=== PATIENT | female | born 1955 | race Caucasian/White ===

== ENCOUNTER 2018-05-13 16:08 | Outpatient (REF) | payer BC, SELFPAY ==
--- NOTE | 2018-05-13 15:45 | PAPFT_PTH ---
PATIENT: Sydney Chang LOC: [facility] U#:[id number] AGE/SX: 63/F ROOM: RE05/13/[address]: Lorena Paez MD : 1955 BED: DIS: 05/13/2018 SPEC #: [id number] RECD: 05/13/18 17:54 STATUS: HARMAN REQ #: [id number] SNEHAL: 05/13/18 15:[address]: Lorena Paez DEPT: [facility] Cytology RECD BY: Lidya Arriaga Tissues: 1 - CX/ENDOCX FOR PAP SMEARS Procedures: PAP THIN PREP/UVM Screening HPV DNA PROBE Comments: [id number]
== END 2018-05-13 16:28 ==
LOC: LBN 16:08
PROVIDERS: PCP Internal Medicine; Visit Provider Internal Medicine
DX: Z12.4 Encounter for screening for malignant neoplasm of cervix (principal); Z11.51 Encounter for screening for human papillomavirus (HPV)
CPT/HCPCS: 88142; 87624

== ENCOUNTER 2018-06-05 00:53 | Outpatient (CLI) | payer BC, SELFPAY ==
--- NOTE | 2018-06-05 16:10 | DI.MAMMO_ITS ---
SYMPTOM/DIAGNOSIS: SCREENING, Z12.31 MAMMOGRAMS: Mammograms were interpreted according to the usual protocol including computer analysis with CAD system, tomosynthesis and C view imaging. Comparison with prior examinations. Breast density A. No suspicious masses or microcalcifications are seen. There is no definite evidence of malignancy. IMPRESSION: Negative mammogram. Routine screening is recommended. Category I. MQSA ASSESSMENT OF FINDINGS: Negative. Category 1. Patient will receive a letter notifying them of these results. BI-RAD category A. The breasts are almost entirely fatty.
== END 2018-06-05 01:13 ==
PROVIDERS: PCP Internal Medicine; Visit Provider Internal Medicine
DX: Z12.31 Encounter for screening mammogram for malignant neoplasm of breast (principal)
CPT/HCPCS: 77063; 77067

== ENCOUNTER 2020-07-08 03:30 | Outpatient (CLI) | payer MEDICARE, BC, SELFPAY ==
--- NOTE | 2020-07-08 07:53 | DI.MAMMO_ITS ---
EXAM: MAMMO SCREENING CLINICAL HISTORY: screening,z12.39 TECHNIQUE: Mammograms were interpreted according to the usual protocol including computer analysis w [employer] CAD system, tomosynthesis and C-view imaging. COMPARISON: 2011 through 2018 FINDINGS: The breasts are composed of mainly fatty density , Breast Density category A. No suspicious masses or suspicious microcalcifications are seen. No skin thickening or abnormal axillary lymph nodes are seen. There has been no significant change from prior exams. IMPRESSION: BI-RADS Category 1, Negative mammogram Yearly screening mammography is recommended. Breast Density - Category A, fatty density. A negative radiographic report should not delay biopsy if a dominant or clinically suspicious mass is present. Up to ten percent of cancers are not identified on mammography. A negative report may reinforce clinical impression. Adenosis and dense breasts may obscure an underlying neoplasm. False positive reports average 6 to 10%. Patient will receive a letter notifying them of these results.
== END 2020-07-08 03:50 ==
PROVIDERS: PCP Internal Medicine; Visit Provider Internal Medicine
DX: Z12.31 Encounter for screening mammogram for malignant neoplasm of breast (principal)
CPT/HCPCS: 77063; 77067

== ENCOUNTER → 2020-09-29 13:01 | Outpatient (BNVA) | payer MEDICARE, BC, SELFPAY | PROVIDERS: PCP Internal Medicine; Referring Provider Internal Medicine | DX: S92.354A Nondisplaced fracture of fifth metatarsal bone, right foot, initial encounter for closed fracture (principal); X50.9XXA Other and unspecified overexertion or strenuous movements or postures, initial encounter | CPT/HCPCS: 99203 ==

== ENCOUNTER 2020-09-29 13:56 | Outpatient (CLI) | payer MEDICARE, BC, SELFPAY ==
--- NOTE | 2020-09-29 09:45 | DI.RAD_ITS ---
Exam(s) XR ANKLE RT COMPLETE EXAM: XR ANKLE RT COMPLETE CLINICAL HISTORY: R foot/ distial tibial pain s/p ankle twisting ?fx M79.671 PAIN RT FOOT. TECHNIQUE: 2D digital imaging was performed. COMPARISON: No exams were available for comparison FINDINGS: There are no malleolar fractures and talar dome appears unremarkable. No widening of the mortise. T iny inferior calcaneal spur. The main finding here is a nondisplaced fracture of the base of the 5th metatarsal. There is no osse ous tarsal coalition. IMPRESSION: There is nondisplaced fracture at the base of the 5th metatarsal. DATA REPOSITORY: RADIATION DOSE DELIVERED:
--- NOTE | 2020-09-29 09:45 | DI.RAD_ITS ---
Exam(s) XR FOOT RT COMPLETE EXAM: XR FOOT RT COMPLETE CLINICAL HISTORY: R foot/ distial tibial pain s/p ankle twisting ?fx M79.671 PAIN RT FOOT. TECHNIQUE: 2D digital imaging was performed. COMPARISON: There is a nondisplaced oblique fracture of the base of the 5th metatarsal. No other fr actures evident. No diastasis of the Lisfranc joint. Bone density is normal. No osseous lesions. No radiopaque foreign body. FINDINGS: Nondisplaced fracture at the base of the 5th metatarsal. IMPRESSION: DATA REPOSITORY: RADIATION DOSE DELIVERED:
--- NOTE | 2020-09-29 09:45 | DI.RAD_ITS ---
Exam(s) XR TIB/FIB RT EXAM: XR TIB/FIB RT CLINICAL HISTORY: R foot/ distial tibial pain s/p ankle twisting ?fx M79.671 PAIN RT FOOT. TECHNIQUE: 2D digital imaging was performed. COMPARISON: CR XR ANKLE RT COMPLETE from 09/29/2020 FINDINGS: There is no evidence of fracture of the tibia and fibula. Mild degenerative changes noted in the med ial compartment of the knee. No osseous lesions. Please note that other images performed today reveal a nondisplaced fracture of the base of the 5th m etatarsal. IMPRESSION: DATA REPOSITORY: RADIATION DOSE DELIVERED:
== END 2020-09-29 14:16 ==
PROVIDERS: PCP Internal Medicine; Visit Provider Nurse Practitioner Family
DX: S92.354A Nondisplaced fracture of fifth metatarsal bone, right foot, initial encounter for closed fracture (principal); M79.89 Other specified soft tissue disorders; M89.8X6 Other specified disorders of bone, lower leg; X50.1XXA Overexertion from prolonged static or awkward postures, initial encounter
CPT/HCPCS: 99203; 73590; 73610; 73630

== ENCOUNTER 2020-11-10 12:03 | Outpatient (CLI) | payer MEDICARE, BC, SELFPAY ==
--- NOTE | 2020-11-10 11:45 | DI.RAD_ITS ---
Exam(s) XR FOOT RT COMPLETE EXAM: XR FOOT RT COMPLETE CLINICAL HISTORY: RIGHT FIFTH METATARSAL FRACTURE. TECHNIQUE: 2D digital imaging was performed. COMPARISON: CR XR FOOT RT COMPLETE from 09/29/2020 FINDINGS: There is now significant displacement at the previously described fracture site at the base of the 5t h metatarsal. There has been significant widening at the fracture site since the prior study. No ne w additional fractures evident. IMPRESSION: Further displacement at the fracture site of the base of the 5th metatarsal is evident. DATA REPOSITORY: RADIATION DOSE DELIVERED:
== END 2020-11-10 12:04 | disposition home or self-care (01) ==
LOC: DIORS 12:03
PROVIDERS: PCP Internal Medicine; Referring Provider Internal Medicine; Visit Provider Student in an Organized Health Care Education/Training Program
DX: S92.354D Nondisplaced fracture of fifth metatarsal bone, right foot, subsequent encounter for fracture with routine healing; X58.XXXD Exposure to other specified factors, subsequent encounter
CPT/HCPCS: 99212; 73630

== ENCOUNTER → 2020-12-22 11:33 | Outpatient (BNVA) | payer MEDICARE, BC, SELFPAY | PROVIDERS: PCP Internal Medicine; Referring Provider Internal Medicine; Visit Provider Student in an Organized Health Care Education/Training Program | DX: S92.354D Nondisplaced fracture of fifth metatarsal bone, right foot, subsequent encounter for fracture with routine healing (principal); X58.XXXD Exposure to other specified factors, subsequent encounter | CPT/HCPCS: 99212 ==

== ENCOUNTER 2021-08-31 03:54 | Outpatient (CLI) | payer MEDICARE, SELFPAY ==
[2021-08-31 10:57] LABS: Anion Gap 5.3 mmol/L (3-11); BUN 13 mg/dL (7-18); CO2 28.7 mmol/L (21.0-32.0); CREATININE 0.9 mg/dL (0.55-1.02); Calcium 8.5 mg/dL (8.5-10.1); Calculated LDL 97 mg/dL (<100); Chloride 108 mmol/L (98-107); Cholesterol 178 mg/dL (<200); Glucose 99 mg/dL (74-106); HDL Cholesterol 71 mg/dL (40-60); Potassium 4.2 mmol/L (3.5-5.1); Sodium 142 mmol/L (136-145); Triglyceride 54 mg/dL (<150)
== END 2021-08-31 03:55 | disposition home or self-care (01) ==
LOC: LBO 03:54
PROVIDERS: PCP Student in an Organized Health Care Education/Training Program; Visit Provider Student in an Organized Health Care Education/Training Program
DX: R10.12 Left upper quadrant pain (principal); K21.9 Gastro-esophageal reflux disease without esophagitis; E86.0 Dehydration; Z79.899 Other long term (current) drug therapy
CPT/HCPCS: 36415; 80048; 80061

== ENCOUNTER 2022-03-21 14:19 | Outpatient (REF) | payer MEDICARE, SELFPAY ==
[2022-03-23 11:55] LABS: COVID-19 RT-PCR UVMMC Result Negative (Negative)
== END 2022-03-21 14:20 | disposition home or self-care (01) ==
LOC: LBN 14:19
PROVIDERS: PCP Student in an Organized Health Care Education/Training Program; Visit Provider Nurse Practitioner Family
DX: Z20.822 Contact with and (suspected) exposure to COVID-19 (principal)
CPT/HCPCS: U0003

== ENCOUNTER → 2022-08-21 12:57 | Outpatient (BNVA) | payer MEDICARE, SELFPAY | PROVIDERS: PCP Student in an Organized Health Care Education/Training Program; Referring Provider Student in an Organized Health Care Education/Training Program; Visit Provider Surgery | DX: R10.812 Left upper quadrant abdominal tenderness (principal); K21.9 Gastro-esophageal reflux disease without esophagitis | CPT/HCPCS: 99202; 99213 ==

== ENCOUNTER 2022-08-30 10:26 | Outpatient (REF) | payer MEDICARE, SELFPAY ==
[2022-09-03 16:24] LABS: Calprotectin <50.0 mcg/g; Helicobacter pylori Ag, Feces Negative (Negative)
== END 2022-08-30 10:27 | disposition home or self-care (01) ==
LOC: LBN 10:26
PROVIDERS: PCP Student in an Organized Health Care Education/Training Program; Visit Provider Student in an Organized Health Care Education/Training Program
DX: R10.9 Unspecified abdominal pain (principal); Z79.899 Other long term (current) drug therapy; Z91.89 Other specified personal risk factors, not elsewhere classified; K21.9 Gastro-esophageal reflux disease without esophagitis
CPT/HCPCS: 87338; 83630; 83993

== ENCOUNTER 2022-08-31 01:02 | Outpatient (CLI) | payer MEDICARE, SELFPAY ==
--- NOTE | 2022-08-31 08:03 | DI.US_ITS ---
Exam(s) US ABDOMEN EXAM: US ABDOMEN CLINICAL HISTORY: evaluate for fatty liver; LUQ for hernia,hepatic lesion,luq abd tenderness, TECHNIQUE: Ultrasound of complete upper abdomen performed using standard protocol. COMPARISON: US PELVIS TRANSVAG from 02/21/2016 FINDINGS: There is no ascites evident. LIVER: Liver appears slightly prominent in size. There is no steatosis. There is a septated cyst in the left hepatic lobe. This measures 1.7 x 1.2 x 1.2 cm. GALLBLADDER/BILIARY: There appears be a small 3 millimeter polyp in the gallbladder. No shadowing mo bile gallstones. No gallbladder wall edema nor pericholecystic fluid. The common hepatic duct isnot dilated, measuring 4mm at the level of bryant hepatis. PANCREAS: There is no evidence of pancreatic mass nor dilatation of the pancreatic duct. SPLEEN: The spleen is not enlarged and there are no intrasplenic lesions evident. KIDNEYS:Kidneys exhibit normal size with no evidence of solid mass, calculus, nor hydronephrosis. No cortical cysts evident. ABDOMINAL AORTA: There is no evidence of abdominal aortic aneurysm. IVC: Normal diameter where visualized. IMPRESSION: 1. No evidence of cholelithiasis nor dilatation of the biliary tree. 2. There is a benign-appearing septated cyst in the left hepatic lobe which measures 17 x 12 x 12 mm . 3. There is a small polyp in the gallbladder measuring approximately 3 mm. DATA REPOSITORY:
== END 2022-08-31 01:22 ==
LOC: DI 01:02
PROVIDERS: PCP Student in an Organized Health Care Education/Training Program; Visit Provider Student in an Organized Health Care Education/Training Program
DX: R16.0 Hepatomegaly, not elsewhere classified (principal); K82.4 Cholesterolosis of gallbladder; D13.4 Benign neoplasm of liver
CPT/HCPCS: 76700

== ENCOUNTER 2022-09-05 08:00 | Day surgery (SDC) | payer MEDICARE, SELFPAY ==
[2022-09-05 08:12] VITALS: BP 117/74; PULSE 63; RESP 16; TEMP 36.2; O2SAT 100
--- NOTE | 2022-09-05 08:18 | W.ANESPRE ---
General Info Date of Service Date Performed: 09/05/22 Height: 5 ft 3 in Weight: 92.306 kg Body Mass Index (BMI): 36.0 Surgical Procedure: Operation Date: 09/05/22 09:50 Proposed Procedure Side Surgeon p Gastroscopy Freya Cochran MD Meds Allergies and Home Medications Allergies Allergy/AdvReac Type Severity Reaction Status Date / Time amoxicillin Allergy Intermediate Skin Rash Verified 09/05/22 08:20 Sulfa (Sulfonamide Allergy Intermediate Skin Rash Verified 09/05/22 08:20 Antibiotics) erythromycin base Allergy Mild Intolerant Verified 09/05/22 08:20 shrimp Allergy Intermediate facial Uncoded 09/05/22 08:20 swelling Home Medication Medication Instructions Recorded multivitamin (Daily Vitamin tablet) 1 ea PO DAILY 07/07/12 famotidine 10 mg tablet (Pepcid AC) 10 mg PO QHS PRN 06/29/20 ibuprofen 200 mg tablet 800 mg PO Q6H PRN 09/29/20 fluticasone propionate 50 1 - 2 spray NS DAILY PRN nasal 07/06/22 mcg/actuation nasal congestion ##1 spray,suspension (Flonase Allergy Relief) super f 1 cap PO DAILY 08/21/22 Current Visit Medications: Current Medications Generic Name Dose Route Start Last Admin Trade Name Freq PRN Reason Stop Dose Admin Ringer's Solution 1,000 mls @ 80 mls/hr 09/05/22 06:00 IV 10/04/22 23:59 INFUSION THOM IV Miscellaneous Supplies 1 each 09/05/22 06:00 Iv Access IV 10/04/22 23:59 DIRECTED THOM Ondansetron HCl 4 mg 09/05/22 06:36 Ondansetron 4 Mg/2 Ml Vial IVP 10/05/22 06:35 Q4H PRN PRN Nausea / Vomiting Sodium Chloride 0 ml 09/05/22 06:00 Normal Saline Flush 10 Ml Syr IV 10/04/22 23:59 PRN PRN Sodium Chloride 0 ml 09/05/22 06:00 Normal Saline 10 Ml Vial IJ 10/04/22 23:59 DIRECTED PRN Sterile Water 0 ml 09/05/22 06:00 Water,Injection,Sterile 10 Ml Vial IJ 10/04/22 23:59 DIRECTED PRN PFSH Active Problems Active Problems: Problem Status Onset Code Renal cyst N28.1 Hepatic lesion K76.9 LUQ abdominal tenderness R10.812 Encounter for initial annual wellness visit in Medicare patient Z00.00 Family history of melanoma Z80.8 Long-term current use of proton pump inhibitor therapy Z79.899 Abdominal pain R10.9 Diastasis recti 04/14/13 M62.08 Esophageal reflux 03/22/11 K21.9 Fam hx-ischem heart disease 03/22/11 Z82.49 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 Medical History Medical History Fracture of fifth metatarsal bone of right foot (09/28/20) Surgical History Surgical History section (04/24/87) X4 Colonoscopy - IV Sedation (11/26/14) Dr Koch H/O tooth extraction H/O wisdom tooth extraction History of endometrial biopsy Tobacco Smoking/Tobacco Use Status: Never Passive smoking exposure: No Alcohol Alcohol Intake: current Alcohol intake frequency: a few times a week Substance Use Substance use: Never Substance use type: does not use Vital Signs and Lab Results Lab Results Blood Type / Crossmatch: No Data to Display Complete Blood Count: No Data to Display Complete Metabolic Panel: No Data to Display Liver Function Panel: No Data to Display Coagulation Panel: No Data to Display Cardiac Panel: No Data to Display Arterial Blood Gas: No Data to Display Venous Blood Gas: No Data to Display Pancreas Panel: No Data to Display Thyroid Panel: No Data to Display Infectious Disease: No Data to Display Blood Cultures: No Data to Display Toxicology Panel: No Data to Display Anesthesia Assessment and Plan Anesthesia History Personal History: No History of Anesthesia Complications Family History: No Family History of Anesthesia Complications Exercise Tolerance Exercise Tolerance: Metabolic Equivalents>4 Cardiac & Pulmonary Exam Cardiac Exam: Normal S1/S2 Heart Sounds Pulmonary Exam: Clear Bilateral Breath Sounds Implantable Cardiac Device Does patient have a Pacemaker or an ICD?: No Airway Exam Known Difficult Airway: No Mallampati Class: 4 Mouth Opening: Narrow (< 3cm) Thyromental Distance: Less than 3 cm Neck Range of Motion: Full ROM Neck Circumference: Normal Teeth Condition: Normal Dentition ASA Classification ASA Score: ASA 2 Emergency Case?: No NPO Status NPO Status: NPO Clears >2 hours, Solids >8 hours Anesthesia Plan Resuscitation Status: Full Code Anesthesia Technique: General Anesthesia Airway Planned: Natural Airway Monitors Used: Standard Monitors Preoperative Comments:: 67 yo female for EGD. Sig PMHx: GERD, liver hemangioma, renal cyst, never smoker, occ EtOH,
--- NOTE | 2022-09-05 08:50 | W.PM.PROGNOT ---
Date of Service Date of service: 09/05/22 Time of Service: 08:55 Assessment and Plan Assessment and plan (1) LUQ abdominal tenderness: Status: Acute Assessment and plan: Ms. Chang is here in same-day surgery today for an upper endoscopy for left upper quadrant pain. I saw her in same-day surgery and we reviewed the risks benefits and complications of the procedure. She has no questions about the procedure itself or the complications. Her is here with her today and he did not have any questions. They both understood the risks and complications of the procedure and wished to proceed. Proceed with upper endoscopy under sedation with biopsies. Subjective Subjective Interval history since last seen: Mrs Chang is a pleasant 67-year-old female who I saw in the office originally for left upper quadrant pain. She does have a longstanding history of reflux and used to be on Aciphex. She was able to get off Aciphex when she lost weight. She is now taking as needed Pepcid at nighttime and a supplement which she states helps with her reflux. Since have seen her in the office she has not had any new symptoms. She does not complain of dysphagia. She has not had any nausea or vomiting. She has not developed any chest pain or shortness of breath. Exam Const General: comfortable and no acute distress Orientation: alert and oriented x3 Resp Effort & Inspection: normal respiratory effort Objective Last Vital Signs Temp 97.2 F L 09/05/22 08:12 Pulse 63 09/05/22 08:12 Resp 16 09/05/22 08:12 BP 117/74 09/05/22 08:12 Pulse Ox 100 09/05/22 08:12 Time Spent with Patient Time Spent with Patient: 25-34 minutes Time was spent: counseling the patient
[2022-09-05 08:52] VITALS: BMI 36.0
[2022-09-05] MEDS: Lactated Ringers 1,000 ML 80 ML IV (08:52)
--- NOTE | 2022-09-05 09:05 | STOM_PTH ---
PATIENT: Sydney Chang LOC: [facility] U#:[id number] AGE/SX: 67/F ROOM: RE09/05/[address]: Freya Cochran MD : 1955 BED: DIS: 09/05/2022 SPEC #: [id number] RECD: 09/05/22 12:37 STATUS: JOLANTAJanett REWendy #: [id number] SNEHAL: 09/05/22 09:[address]: Freya Cochran DEPT: Surgical Specimen RECD BY: Lidya Arriaga ENTERED: 09/05/22 12:40 SP TYPE: STOMACH OTHR DR: Rhea Perkins DO Tissues: 1 - BIOPSY BOWEL 2 - STOMACH BIOPSY 3 - STOMACH BIOPSY 4 - STOMACH BIOPSY 5 - ESOPHAGUS BIOPSY Procedures: GROSS AND MICRO LEVEL 4 Comments: [id number]
[2022-09-05 09:17] VITALS: BP 127/67; PULSE 82; RESP 16; TEMP 36.6; O2SAT 97
--- NOTE | 2022-09-05 09:20 | ENDO_ITS ---
Date of service: 09/05/22 Time of Service: 09:20 Endoscopy Report DATE OF PROCEDURE: 09/05/22 PRE-OP DIAGNOSIS: LUQ pain POST-OP DIAGNOSIS: other (Duodenitis, gastritis with ulcer, Esophagitis with ulcer) PROCEDURE: EGD with biopsy SURGEON: Freya Cochran ANESTHESIA TYPE: General:No Airway ESTIMATED BLOOD LOSS: 3 PATHOLOGY: other (Bx of duodenal polyp, pylorus, antrum and body, bx of GE junction) COMPLICATIONS: None DISPOSITION: same day INDICATIONS: Mrs. Chang is a pleasant 67-year-old female with a longstanding history of reflux which she states is pretty well controlled with a supplement called super F.? It must take her famotidine 10 mg at nighttime as needed.? We discussed the reason behind trying to do an upper endoscopy is because of this left upper quadrant pain which may or may not be muscular.? Her stomach does come to go out into that area where she is tender so she could have some gastritis which is causing the discomfort.? She has also been on Aciphex for a long time even though and she weaned herself off.? She is in agreement at having an upper endoscopy done and just making sure that there is not anything else going on.? I described the procedure in detail as well as the risks, benefits and complications.? She understood the complications and agreed to proceed.? Risks, benefits and complications have been reviewed. Complications include but are not limited to bleeding, pain, perforation, sore throat, aspiration, and adverse reaction to the medications.? Questions were entertained and answered to their satisfaction and they wished to proceed. No guarantees were given or implied. FINDINGS: Inflammation of the duodenal bulb and polyp, inflammation of the stomach with ulcer at the pylorus Inflammation of the GE junction with Schatzkis ring and ulcer PROCEDURE DESCRIPTION: After informed consent was obtained the patient was take to the procedure room and placed in a supine position. Monitors were applied and a time out was done. The patients name, date of , procedure type, allergies to medications and metal in their body was reviewed. A bite block was placed and the patient was sedated. Once sedated and comfortable the gastroscope was advanced through the oropharynx which was grossly normal into the esophagus. The proximal and mid- esophagus were normal. In the distal esophagus there was inflammation, ulcer and a Schatzki's ring noted. The scope was advanced into the stomach and through the pylorus into the 3rd portion of the duodenum. The 2nd and 3rd po rtion of the duodenum was noted to be normal. The 1st portion of the duodenum showed some inflammation and polyps. Biopsies were done of the polyp. The scope was retracted back into the stomach. There was inflammation in the entire stomach. There was an ulcer at the pylorus. Biopsies were done of the antrum and body to rule out H. pylori. There pyloric ulcer was biopsied. The scope was retroflexed. The cardia and fundus were noted to be normal. There a small 3 cm hiatal hernia noted. The scope was retracted back into the esophagus and biopsies were done of the GE junction to rule out Cordero's. The Z line was irregula with a small column that goes up 1 cm. The GE junction was at 35 cm. There was also a Schatzki's ring. The scope was removed and the patient was woken up and taken back to [facility] in stable condition. Follow up: 2 weeks. Start on Pepcid 40 mg BId
--- NOTE | 2022-09-05 09:29 | W.PM.DSUDISC ---
Date of service: 09/05/22 Time of Service: 09:29 Discharge Plan Disposition Patient Disposition: Home Condition: Stable Discharge Details Reason For Visit: LUQ pain Attending Provider: Freya Cochran Primary Care Provider: Rhea Perkins Home Meds and New Rx's Prescriptions: New famotidine [Pepcid] 40 mg tablet 40 mg PO BID 90 Days Qty: 180 0RF Continued ibuprofen 200 mg tablet 800 mg PO Q6H PRN super f capsule 1 cap PO DAILY Rx Instructions: Pt gets this from her natural path, takes 3 capsules with first meeal multivitamin [Daily Vitamin] 1 EACH tablet 1 ea PO DAILY Rx Instructions: currently Om[employer] Vitamin 10/13/13 cgc fluticasone propionate [Flonase Allergy Relief] 50 mcg/actuation spray,suspension 1 - 2 spray NS DAILY PRN (Reason: nasal congestion) Qty: 1 0RF Discontinued famotidine [Pepcid AC] 10 mg tablet 10 mg PO QHS PRN Discharge Instructions Instructions: Gastritis (DC), Diet for Stomach Ulcers and Gastritis (ED), GERD (Gastroesophageal Reflux Disease) (DC) Stand Alone Forms: Anesthesia Discharge Inst., Milla Spann (DSU) Referrals: Freya Cochran MD [ [facility] STAFF PHYSICIAN] - 09/19/22 1:00 pm Activity:: Activity as Tolerated Diet:: As Tolerated Discharge Orders Discharge Orders: Discharge Order (Routine); Ordered 09/05/22 Ordered By: Freya Cochran DS: Diagnosis Discharge Diagnosis (1) LUQ abdominal tenderness: Status: Acute Asessment and Plan: Patient is seen and examined after their endoscopy. Patient has minimal sore throat. They have been able to tolerate liquids. They do not have any Nausea or Vomiting. They are not having any chest pain or shortness of breath. They have been able to pass gas and are not having any abdominal pain or distention. they have not vomited any blood. The vital signs have been stable-see nursing notes. We discussed findings on their endoscopy We reviewed the importance of lifestyle modifications- see diet recommendations We reviewed any new medications that the patient may be prescribed- see medicine reconciliation. Patient will either be sent a letter with the biopsy results or follow up in the office- see discharge instructions Patient was given explicit instructions for emergency follow up post endoscopy- see discharge instructions Patient verbalized understanding and was discharged in stable and satisfactory condition. See nursing notes. (2) Gastritis: Status: Acute (3) Esophagitis: Status: Acute (4) H/O esophagogastroduodenoscopy:
--- NOTE | 2022-09-05 09:37 | W.ANESPOSTOP ---
Postoperative Evaluation Date, Time and Location Date Performed: 09/05/22 Time Performed: 09:37 Patient Location: Day Surgery Unit Vital Signs Most Recent Imported Vital Signs: Most Recent Vital Signs Temp Pulse Resp BP Pulse Ox 36.6 C 82 16 127/67 97 09/05/22 09:17 09/05/22 09:17 09/05/22 09:17 09/05/22 09:17 09/05/22 09:17 Pain Score Most Recent Pain Score: Most Recent Pain Score Pain Level 0 09/05/22 09:17 Assessment Mental Status: Awake (Alert & Oriented to Patient Baseline) Airway and Respiratory Function: Patent airway with normal (patient baseline) respiratory exam Cardiovascular Function: Hemodynamically Stable Hydration Status: Adequately Hydrated Nausea & Vomiting: No Nausea or Vomiting Pain: Pt. Denies Any Pain Peripheral Nerve Block: Patient did not receive a nerve block
[2022-09-05 09:44] VITALS: BP 110/82; PULSE 63; RESP 16; TEMP 36.2; O2SAT 98
== END 2022-09-05 10:20 | disposition home or self-care (01) ==
PROVIDERS: PCP Student in an Organized Health Care Education/Training Program; Visit Provider Surgery
PROC: 0DJ68ZZ Inspection of Stomach, Via Natural or Artificial Opening Endoscopic (ICD-10-PCS; CPT 43235; principal; 2022-09-05 09:45)
DX: R10.812 Left upper quadrant abdominal tenderness (principal); K29.80 Duodenitis without bleeding; K22.10 Ulcer of esophagus without bleeding; K29.70 Gastritis, unspecified, without bleeding; K25.9 Gastric ulcer, unspecified as acute or chronic, without hemorrhage or perforation; K31.7 Polyp of stomach and duodenum; K22.2 Esophageal obstruction; K44.9 Diaphragmatic hernia without obstruction or gangrene; K31.89 Other diseases of stomach and duodenum; K21.00 Gastro-esophageal reflux disease with esophagitis, without bleeding
CPT/HCPCS: 43239; 88305; J2704

== ENCOUNTER 2022-09-12 02:40 | Outpatient (CLI) | payer MEDICARE, SELFPAY ==
[2022-09-12 11:25] LABS: MCH 29.8 pg (27.0-33.0); MCHC 32.5 % (32.0-36.0); MCV 92 fL (80-95); MPV 10.7 fL (8.0-11.0); Platelet Count 250 10^3/uL (130-400); RBC 4.36 10^6/uL (3.93-5.22); RDW 11.9 % (11.7-14.6); RDW-SD 40.3 fL; WBC 6.71 10^3/uL (4.4-10.8)
[2022-09-12 12:29] LABS: Anion Gap 7.8 mmol/L (3-11); BUN 21 mg/dL (7-18); CO2 28.2 mmol/L (21.0-32.0); CREATININE 0.7 mg/dL (0.55-1.02); Calcium 8.6 mg/dL (8.5-10.1); Calculated LDL 116 mg/dL (<100); Chloride 103 mmol/L (98-107); Cholesterol 193 mg/dL (<200); Estimated GFR 94.15 (mL/min/1.73m2); Glucose 98 mg/dL (74-106); HDL Cholesterol 66 mg/dL (40-60); Potassium 4.3 mmol/L (3.5-5.1); Sodium 139 mmol/L (136-145); TSH (W/Ref FT4) 2.05 uIU/mL (0.36-3.74); Triglyceride 57 mg/dL (<150)
[2022-09-12 12:40] LABS: Vitamin D 25 Total 34.3 ng/mL (30-100)
== END 2022-09-12 02:41 | disposition home or self-care (01) ==
PROVIDERS: PCP Student in an Organized Health Care Education/Training Program; Visit Provider Student in an Organized Health Care Education/Training Program
DX: Z13.220 Encounter for screening for lipoid disorders (principal); K21.9 Gastro-esophageal reflux disease without esophagitis; R10.9 Unspecified abdominal pain; Z91.89 Other specified personal risk factors, not elsewhere classified; Z82.49 Family history of ischemic heart disease and other diseases of the circulatory system; Z79.899 Other long term (current) drug therapy
CPT/HCPCS: 36415; 80048; 80061; 82306; 85027; 84443

== ENCOUNTER → 2022-09-19 13:57 | Outpatient (BNVA) | payer MEDICARE, SELFPAY | PROVIDERS: PCP Student in an Organized Health Care Education/Training Program; Referring Provider Student in an Organized Health Care Education/Training Program; Visit Provider Surgery | DX: Z48.815 Encounter for surgical aftercare following surgery on the digestive system (principal); K29.70 Gastritis, unspecified, without bleeding; K21.00 Gastro-esophageal reflux disease with esophagitis, without bleeding | CPT/HCPCS: 99212; 99213 ==

== ENCOUNTER 2022-10-05 00:46 | Outpatient (CLI) | payer MEDICARE, SELFPAY ==
--- NOTE | 2022-10-05 07:45 | DI.MAMMO_ITS ---
Exam(s) MAMMO SCREENING EXAM: MAMMO SCREENING CLINICAL HISTORY: screening,Z12.39 TECHNIQUE: Mammograms were interpreted according to the usual protocol including computer analysis w [employer] CAD system, tomosynthesis and C-view imaging. COMPARISON: 2013 through 2020 FINDINGS: The breasts are composed of mainly fatty density , Breast Density category A. No suspicious masses or suspicious microcalcifications are seen. No skin thickening or abnormal axillary lymph nodes are seen. There has been no significant change from prior exams. IMPRESSION: BI-RADS Category 1, Negative mammogram Yearly screening mammography is recommended. Breast Density - Category A, fatty density. A negative radiographic report should not delay biopsy if a dominant or clinically suspicious mass is present. Up to ten percent of cancers are not identified on mammography. A negative report may reinforce clinical impression. Adenosis and dense breasts may obscure an underlying neoplasm. False positive reports average 6 to 10%. Patient will receive a letter notifying them of these results.
--- NOTE | 2022-10-05 11:28 | DI.DEXA_ITS ---
Exam(s) XR DEXA BONE DENSITY W/WO MELVIN EXAM: XR DEXA BONE DENSITY W/WO MELVIN CLINICAL HISTORY: evaluate bone density,SCREENING FOR OSTEOPOROSIS IN POSTMENOPAUSAL WOMAN,Z7 TECHNIQUE: [employer] C densitometer analysis of left hip, lumbar spine and left forearm. Lat eral survey image of the thoracic and lumbar spine. COMPARISON: No exams were available for comparison FINDINGS: Lateral view of the thoracic and lumbar spine shows no evidence of compression fractures. Bone mineral density measurements of the lumbar spine correspond to a total T-score of -0.7, in the normal range. Bone mineral density measurements of the left hip correspond to a total T-score of -0.6. The femora l neck T-score is -1.4, in the osteopenic range.. Theleft forearm bone mineral density measurements correspond to a T-score of the distal 3rd of 1.0, in the normal range.. IMPRESSION: Bone mineral density of the spine and left forearm. Osteopenia of the hip.
== END 2022-10-05 01:06 ==
LOC: DI 00:46
PROVIDERS: PCP Student in an Organized Health Care Education/Training Program; Visit Provider Student in an Organized Health Care Education/Training Program
DX: K21.9 Gastro-esophageal reflux disease without esophagitis (principal); Z78.0 Asymptomatic menopausal state; Z79.899 Other long term (current) drug therapy; M81.0 Age-related osteoporosis without current pathological fracture; Z12.31 Encounter for screening mammogram for malignant neoplasm of breast
CPT/HCPCS: 77063; 77067; 77080

== ENCOUNTER 2025-01-12 11:17 | Emergency (ER) | payer MEDICARE, SELFPAY ==
[2025-01-12] VITALS (33 sets, daily range): BP systolic 103–119; BP diastolic 48–75; PULSE 55–77; RESP 10–20; TEMP 36.4; O2SAT 94–100
--- NOTE | 2025-01-12 11:15 | RT.EKG_ITS ---
APPROVED REPORT Exam: Resting ECG Reason for Exam: Chest Pain Patient Location: E HR:61 bpm ECG Measurements Heart Rate 61 AXIS NC 178 P 22 QRSd 96 QRS 25 QT 430 T 48 QTc 433 Conclusion Sinus rhythm...normal P axis, V-rate 60- 99 No Occlusion [place]
[2025-01-12] MEDS: Aspirin 81 MG CHEW 324 MG CH (11:50)
[2025-01-12 11:57] LABS: Abs Immature Grans 0.03 10^3/uL (0.0-0.06); HCT 40.7 % (36.0-46.0); HGB 13.1 g/dL (11.2-15.7); Immature Grans % 0.2 %; MCH 29.8 pg (27.0-33.0); MCHC 32.2 % (32.0-36.0); MCV 93 fL (80-95); MPV 10.5 fL (8.0-11.0); Platelet Count 211 10^3/uL (130-400); RBC 4.39 10^6/uL (3.93-5.22); RDW 11.7 % (11.7-14.6); RDW-SD 39.8 fL; WBC 13.09 10^3/uL (4.4-10.8)
[2025-01-12 12:23] LABS: ALT 23 U/L (14-59); AST 20 U/L (15-37); Albumin 4.1 g/dL (3.4-5.0); Alkaline Phosphatase 77 U/L (46-116); Anion Gap 9.9 mmol/L (3-11); BUN 13 mg/dL (7-18); Bilirubin, Total 1.2 mg/dL (0.2-1.0); CO2 28.1 mmol/L (21.0-32.0); Calcium 9.1 mg/dL (8.5-10.1); Chloride 104 mmol/L (98-107); Estimated GFR 96.50 (mL/min/1.73m2); Glucose 108 mg/dL (74-106); Lipase 24 U/L (<78); Magnesium 2.0 mg/dL (1.8-2.4); NT-proBNP 65 pg/mL (<300); Potassium 3.9 mmol/L (3.5-5.1); Sodium 142 mmol/L (136-145); Total Protein 7.5 g/dL (6.4-8.2)
[2025-01-12 12:25] LABS: Troponin I < 4 ng/L (<or=51)
[2025-01-12 12:42] LABS: D-Dimer 393 ng/mlFEU (<500)
--- NOTE | 2025-01-12 12:45 | DI.CT_ITS ---
Exam(s) CT CHEST/ABD/PEL W EXAM: CT CHEST/ABD/PEL W CLINICAL HISTORY: RUQ pain, chest pain. TECHNIQUE: Imaging Protocol: Axial computed tomography images with coronal and sagittal reformatted images were created and reviewed CONTRAST MATERIAL: Intravenous: Omnipaque 350 Contrast volume:75 cc Oral: None COMPARISON: CT UPPER ABD WITH CONTRAST (P) from 05/12/2010 FINDINGS: CHEST: LUNGS: No infiltrates nor pleural effusions. No ominous pulmonary nodules. No central pulmonary emboli evident.. MEDIASTINUM: There is no hilar nor mediastinal adenopathy. Asymmetric right thyroid lobe with posterior mediastinal extension but no discernible nodules nor significant tracheal deviation CARDIAC: Heart size is normal. There is no pericardial effusion.Caliber of the thoracic aorta is within normal limits. No evidence of dissection. OSSEOUS: No significant osseous lesions.No fractures. ABDOMEN: There is no ascites. 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 There is a benign cyst in the medial aspect of the right hepatic lobe which measures 1.2 x 1.0 cm. There are no dilated intrahepatic ducts. GALLBLADDER/BILIARY: There is enhancement of the wall the gallbladder fundus, possibly significant as there also appears to be some very mild streaking in the fat adjacent to this region.. The remainder of the gallbladder wall does not enhance. There are no radiopaque calculi seen in the gallbladder lumen. The CBD is not dilated. No calculi seen in the nondilated CBD. PANCREAS: No evidence of pancreatic mass nor dilatation of the pancreatic duct. SPLEEN: Spleen is not enlarged. There are no intrasplenic lesions. Splenic and portal veins are patent. ADRENALS: There are no significant adrenal masses. KIDNEYS: No calculi nor hydronephrosis. No solid renal masses. No cysts evident. ABDOMINAL AORTA: Abdominal aorta is not enlarged. LYMPH NODES: There is no retroperitoneal nor paraaortic adenopathy. ABDOMINAL WALL: No evidence of significant anterior abdominal wall nor inguinal hernia. GI: There is abundant fecal material in the colon and rectum. There does not appear to be a bowel obstruction. PELVIS: LYMPH NODES: There is no intrapelvic nor inguinal adenopathy. GI: No evidence of appendicitis.No evidence of obvious sigmoid diverticulitis. URINARY BLADDER: Mild uniform thickening of the urinary bladder wall. REPRODUCTIVE: There are dilated veins in the left para uterine-adnexal region which drain into a mildly prominent left gonadal vein which drains into the left renal vein (which is pre aortic and patent). 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 OSSEOUS: No significant osseous lesions. No fractures. There is chronic disc space narrowing at L5-S1 level noted. IMPRESSION: 1. No significant intrathoracic findings. No evidence of aortic dissection nor pericardial effusion. 2. There is mild enhancement of the wall of the gallbladder fundus and some mild Brii fundal fat streaking. No obvious gallstones noted on CT scan and the CBD is not dilated. Recommend follow-up gallbladder ultrasound. 3. 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 There is a benign small cyst in the right hepatic lobe incidentally noted. 4. Abundant fecal material in the colon noted. Also in the rectum. 5. There are dilated left periuterine veins as described above consistent with element of pelvic congestion. No free fluid. No thrombosis of the gonadal on left renal veins. Report called by myself to ER provider 01/12/2025 at 2:40 p.m. RADIATION DOSE DELIVERED: 371.11mGy.cm Total DLP DATA REPOSITORY: All CT scans at this facility are submitted to the National Radiology Data Registry (NRDR) Dose Index Registry (DIR) with the [employer] (ACR). RADIATION OPTIMIZATION: All CT scans at this facility use at least one of these dose optimization techniques: automated exposure control; mA and/or kV adjustment per patient size (includes targeted exams where dose is matched to clinical indication); or iterative reconstruction.
[2025-01-12 13:13] LABS: Troponin I 4 ng/L (<or=51)
[2025-01-12 13:27] LABS: Glucose Negative (Negative)
[2025-01-12] MEDS: Omnipaque 350 MG/ML 100 ML BTL IJ (13:30)
[2025-01-12] MEDS: Normal Saline - Diluent 50 ML VIAL IJ (13:30)
--- NOTE | 2025-01-12 13:51 | ED.GENADUL_ITS ---
Discharge Plan Disposition Patient Disposition: Home Condition: Stable Discharge Details Clinical Impression: Chest pain of uncertain etiology Primary Care Provider: Kedar Velazco ED Provider: Turner Russell Home Meds and New Rx's Prescriptions: No Action super eff capsule 1 cap PO DAILY Rx Instructions: Pt gets this from her natural path, takes 3 capsules with first meeal magnesium gluconate 500 mg tablet 500 mg PO DAILY multivitamin [Daily Vitamin] 1 EACH tablet 1 ea PO DAILY Rx Instructions: currently Omni Vitamin 10/13/13 cgc fluticasone propionate [Flonase Allergy Relief] 50 mcg/actuation spray,suspension 1 - 2 spray NS DAILY PRN (Reason: nasal congestion) Qty: 1 0RF Discharge Instructions Instructions: Chest Pain, Adult ED Additional Instructions: You were seen in the emergency department for your chest and upper abdominal pain, your imaging studies show large stool burden through the colon which could be causing some of your pain, does not show any gallbladder infection or gallstones but shows that you have a gallbladder polyp which likely just needs monitoring with further imaging from your primary care provider. Your cardiac enzymes are negative and there is no blood clot in your lungs with a negative D- dimer study and there is no other emergent pathology on imaging, your EKG is within normal limits, please follow-up with your primary care provider for baseline cardiac studies but at this point you should trial [id number] famotidine for possible gastritis if you do not have relief with a bowel movement, please return for any severe acute worsening of chest pain especially with dizziness, shortness of breath, sweating or any other emergent concerns. Referrals: Kedar Velazco DO [Primary Care Provider, Medicine] Discharge Data Discharge Date/Time-TO BE ENTERED AT DEPARTURE: 01/12/25 15:35 HPI General Date/Time Provider Initiated Documentation: 01/12/25 11:38 . HPI Narrative: 69 year-old female presents to ED today by POV/ambulating with her with a chief complaint of central chest pain and upper abdominal pain with onset at 0530 this morning. Quality described as constant, no radiation to syncope, dizziness, sweating, fever, vomiting, bowel/urinary changes. Severity is described as 8-9/10. Palliating factors include nothing specific attempted. Provoking factors include nothing specific. Events leading up to the incident/Associated Symptoms: Patient denies history of cardiac disease. Patient not anticoagulated. Related Data Home Medications ?Medication ?Instructions ?Recorded ?Confirmed multivitamin (Daily Vitamin tablet) 1 ea PO DAILY 06/1701/12/25 fluticasone propionate 50 1 - 2 spray NS DAILY PRN jenniffer al 07/06/22 01/12/25 mcg/actuation nasal congestion ##1 spray,suspension (Flonase Allergy Relief) super eff 1 cap PO DAILY 08/08/2312/17 magnesium gluconate 500 mg tablet 500 mg PO DAILY leg cramps 07/22/24 01/12/25 Previous Rx's ?Medication ?Instructions ?Recorded fluticasone propionate 50 1 - 2 spray NS DAILY PRN jenniffer al 07/06/22 mcg/actuation nasal congestion ##1 spray,suspension (Flonase Allergy Relief) Allergies Allergy/AdvReac Type Severity Reaction Status Date / Time amoxicillin Allergy Intermediate Skin Rash Verified 01/13/25 13:17 Sulfa (Sulfonamide Allergy Intermediate Skin Rash Verified 01/13/25 13:17 Antibiotics) erythromycin base Allergy Mild Intolerant Verified 01/13/25 13:17 shrimp Allergy Intermediate facial Uncoded 01/13/25 13:17 swelling General Stated Complaint: Chest Pain JUSTINO: 3 Review of Systems All systems reviewed & are unremarkable except as noted in HPI and below Exam Narrative Exam Narrative: GENERAL APPEARANCE: Well-nourished, non-toxic, awake and alert, atraumatic, no acute distress. SKIN: Warm, pink, dry, intact, without rashes/lesions/ulcerations. HEAD: Normocephalic, atraumatic, normal hair distribution for gender/age. EYES: Normal conjunctiva, no exudates on lids/lashes. ENT: Nares patent, no circumoral cyanosis, no facial swelling NECK: Supple, trachea midline, painless cervical ROM. LUNGS/CHEST: Lungs CTA bilaterally- no focally diminished or absent lung sounds, non-labored respirations, normal A/P diameter, symmetrical expansion, no chest wall deformity, central chest tenderness without rib crepitus HEART (CV/PV): Regular rate and rhythm without murmur, no peripheral edema, no JVD. ABDOMEN: Soft, non-distended, no guarding, RUQ tenderness without Quinones's sign, no CVA tenderness to percussion bilaterally. MSK: Normal ROM, no swelling/deformity to bilateral UEs or LEs, moving all extremities without weakness, no cyanosis, spine midline without tenderness, normal curvature. NEURO: Mental Status AAOx4 - alert to person, place, time, events No facial droop, no forehead involvement. Motor: No focal weakness - strength 5/5 in bilateral UEs and LEs, proximal and distal, symmetric. Sensory: sensation intact to light touch globally. Gait normal: patient ambulated without ataxia into ED room. PSYCH: euthymic, cooperative, pleasant, appropriate speech Course Vital Signs Vital signs: Vital Signs Temperature 36.4 C L 01/12/25 11:19 Pulse 70 01/12/25 11:19 Respiratory Rate 18 01/12/25 11:19 Blood Pressure 115/75 01/12/25 11:19 Pulse Oximetry 98 01/12/25 11:19 Temperature 36.4 C L 01/12/25 11:19 Temperature Source Oral 01/12/25 11:19 Pulse 60 01/12/25 12:01 Pulse 59 L 01/12/25 12:01 Respiratory Rate 10 L 01/12/25 12:06 Respiratory Effort Normal, Non-Labored 01/12/25 12:06 Respiratory Depth Normal 01/12/25 12:06 Respiratory Pattern Normal 01/12/25 12:06 Blood Pressure 112/60 01/12/25 12:00 Blood Pressure Mean 79 01/12/25 12:00 Blood Pressure Position Sitting 01/12/25 11:19 Pulse Oximetry 100 01/12/25 12:01 Oxygen Delivery Method Room Air 01/12/25 11:19 Oxygen Flow Rate 0 01/12/25 11:19 Pain Level 8 01/12/25 11:19 Comment Breathing pain is 8/10. stationary 06/2501/12/25 11:19 Lab/Test Results Lab/Test Results: Laboratory Tests Range/Units 01/12/25 01/12/25 01/12/25 11:45 12:45 13:10 WBC (4.4-10.8) 10^3/uL 13.09 H RBC (3.93-5.22) 10^6/uL 4.39 Hgb (11.2-15.7) g/dL 13.1 Hct (36.0-46.0) % 40.7 MCV (80-95) fL 93 MCH (27.0-33.0) pg 29.8 MCHC (32.0-36.0) % 32.2 RDW (11.7-14.6) % 11.7 Plt Count (130-400) 10^3/uL 211 MPV (8.0-11.0) fL 10.5 Immature Gran % % 0.2 Neutrophils % % 84.9 Lymphocytes % % 9.5 Monocytes % % 5.0 Eosinophils % % 0.2 Basophils % % 0.2 Nucleated RBC % (0.0-0.3) % 0.0 Absolute Neutrophils (1.2-6.7) 10^3/uL 11.11 H Absolute Lymphocytes (1.2-3.4) 10^3/uL 1.24 Absolute Monocytes (0.1-0.8) 10^3/uL 0.65 Absolute Eosinophils (0.0-0.7) 10^3/uL 0.03 Absolute Basophils (0.0-0.2) 10^3/uL 0.03 D-Dimer (<500) ng/mlFEU 393 VBG Lactate (<or=2.0) mmol/L 1.0 Sodium (136-145) mmol/L 142 Potassium (3.5-5.1) mmol/L 3.9 Chloride (98-107) mmol/L 104 Carbon Dioxide (21.0-32.0) mmol/L 28.1 Anion Gap (3-11) mmol/L 9.9 BUN (7-18) mg/dL 13 Creatinine (0.55-1.02) mg/dL 0.6 Est GFR (CKD-EPI 2020) (mL/min/1.73m2) 96.50 Glucose (74-106) mg/dL 108 H Calcium (8.5-10.1) mg/dL 9.1 Magnesium (1.8-2.4) mg/dL 2.0 Total Bilirubin (0.2-1.0) mg/dL 1.2 H AST (15-37) U/L 20 ALT (14-59) U/L 23 Alkaline Phosphatase (46-116) U/L 77 Troponin I (<or=51) ng/L < 4 4 NT-Pro-B Natriuret Pep (<300) pg/mL 65 Total Protein (6.4-8.2) g/dL 7.5 Albumin (3.4-5.0) g/dL 4.1 Lipase (<78) U/L 24 Urine Color (Yellow) Yellow Urine Clarity (Clear) Clear Urine pH (5-8) 6.5 Ur Specific [place] (1.005-1.025) 1.015 Urine Protein (Neg-Trace) mg/dL Negative Urine Ketones (Negative) mg/dL 15 H Urine Blood (Negative) Negative Urine Nitrite (Negative) Negative Urine Bilirubin (Negative) Negative Urine Urobilinogen (Up to 0.2) mg/dL 0.2 Ur Leukocyte Esterase (Negative) Negative Urine Glucose (Negative) mg/dL Negative Medical Decision Making This dictation utilizes [id number] dictation software and may contain uned ited grammatical errors. 69 year-old female presents to ED today by POV/ambulating with her with a chief complaint of central chest pain and upper abdominal pain with onset at 0530 this morning. Quality described as constant, no radiation to syncope, dizziness, sweating, fever, vomiting, bowel/urinary changes. Severity is described as 8-9/10. Palliating factors include nothing specific attempted. Provoking factors include nothing specific. Events leading up to the incident/Associated Symptoms: Patient denies history of cardiac disease. Patients' medical history: Noncontributory. Family and social history: Noncontributory. Pertinent exam findings / vital signs include pleuritic chest tenderness with stable ribs, no focally diminished or absent lung sounds, right upper quadrant t enderness without overt Quinones sign, no CVA tenderness to percussion bilaterally, stable vitals and nontoxic, afebrile. Differential / pathologies of concern include gastritis, PE, ACS, biliary colic, pleurisy, costochondritis. Diagnostic studies of: - CBC, CMP, lipase, serial troponins, D-dimer, EKG, CT chest/ABD/pelvis with contrast, US ABD LTD-RUQ. - CBC shows a mild leukocytosis of 13, nonspecific, no left shift, no anemia - D-dimer negative, Wells low risk, do not suspect PE - Lactate negative - CMP without actionable abnormality - Serial troponins negative - BNP negative - Lipase negative - UA is completely benign - EKG without signs of acute ischemia, sinus rhythm without T wave abnormalities, normal axis, no ST changes, normal intervals - CT shows some gallbladder wall enhancement at the fundus, possibly non- radiopaque stone recommends ultrasound as well as large amount of stool throughout the colon - US shows no cholelithiasis or cholecystitis, shows gallbladder polyp Interventions of: -324mg CH ASA. Heart score low risk, reasonable for outpatient follow-up ED Course/Assessment/Plan: 69-year-old female presents with right upper quadrant epigastric pain/chest pain that awoke her from sleep this morning, she has no heart history, her EKG is not showing any concerns for ischemic changes, lipase is within normal limits, she does have diffuse constipation and stool burden, she had some gallbladder wall enhancement at the fundus but no overt stones and no cholelithiasis or cystitis seen on follow-up x-ray does have a gallbladder polyp, counseled to follow-up wi th her primary care provider for this, trial of laxatives for relief of constipation pain and taking medications for possible gastritis with strict return criteria for any worsening chest pain especially dizziness shortness of breath diaphoresis or any other emergent concerns. Findings not consistent with cholecystitis, PE, ACS, pneumothorax, respiratory distress, SBO. Disposition of Chest Pain of Uncertain Etiology. Patient verbalized understanding of the plan and return to ED criteria and engaged in shared decision making. Medical Records Medical records reviewed: Yes I reviewed the patient's medical records. Imaging Data Radiologic Study: Attestation: I personally reviewed and interpreted this imaging study as follows: Imaging: CT Scan Radiologist's impression: EXAM: CT CHEST/ABD/PEL W CLINICAL HISTORY: RUQ pain, chest pain. TECHNIQUE: Imaging Protocol: Axial computed tomography images with coronal and sagittal reformatted images were created and reviewed CONTRAST MATERIAL: Intravenous: Omnipaque 350 Contrast volume:75 cc Oral: None COMPARISON: CT UPPER ABD WITH CONTRAST (P) from 05/12/2010 FINDINGS: CHEST: LUNGS: No infiltrates nor pleural effusions. No ominous pulmonary nodules. No central pulmonary emboli evident.. MEDIASTINUM: There is no hilar nor mediastinal adenopathy. Asymmetric right thyroid lobe with posterior mediastinal extension but no discernible nodules nor significant tracheal deviation CARDIAC: Heart size is normal. There is no pericardial effusion.Caliber of the thoracic aorta is within normal limits. No evidence of dissection. OSSEOUS: No significant osseous lesions.No fractures. ABDOMEN: There is no ascites. 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 There is a benign cyst in the medial aspect of the right hepatic lobe which measures 1.2 x 1.0 cm. There are no dilated intrahepatic ducts. GALLBLADDER/BILIARY: There is enhancement of the wall the gallbladder fundus, possibly significant as there also appears to be some very mild streaking in the fat adjacent to this region.. The remainder of the gallbladder wall does not enhance. There are no radiopaque calculi seen in the gallbladder lumen. The CBD is not dilated. No calculi seen in the nondilated CBD. PANCREAS: No evidence of pancreatic mass nor dilatation of the pancreatic duct. SPLEEN: Spleen is not enlarged. There are no intrasplenic lesions. Splenic and portal veins are patent. ADRENALS: There are no significant adrenal masses. KIDNEYS: No calculi nor hydronephrosis. No solid renal masses. No cysts evident. ABDOMINAL AORTA: Abdominal aorta is not enlarged. LYMPH NODES: There is no retroperitoneal nor paraaortic adenopathy. ABDOMINAL WALL: No evidence of significant anterior abdominal wall nor inguinal hernia. GI: There is abundant fecal material in the colon and rectum. There does not appear to be a bowel obstruction. PELVIS: LYMPH NODES: There is no intrapelvic nor inguinal adenopathy. GI: No evidence of appendicitis.No evidence of obvious sigmoid diverticulitis. URINARY BLADDER: Mild uniform thickening of the urinary bladder wall. REPRODUCTIVE: There are dilated veins in the left para uterine-adnexal region which drain into a mildly prominent left gonadal vein which drains into the left renal vein (which is pre aortic and patent). 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 OSSEOUS: No significant osseous lesions. No fractures. There is chronic disc space narrowing at L5-S1 level noted. IMPRESSION: 1. No significant intrathoracic findings. No evidence of aortic dissection nor pericardial effusion. 2. There is mild enhancement of the wall of the gallbladder fundus and some mild Brii fundal fat streaking. No obvious gallstones noted on CT scan and the CBD is not dilated. Recommend follow-up gallbladder ultrasound. 3. 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 There is a benign small cyst in the right hepatic lobe incidentally noted. 4. Abundant fecal material in the colon noted. Also in the rectum. 5. There are dilated left periuterine veins as described above consistent with element of pelvic congestion. No free fluid. No thrombosis of the gonadal on left renal veins. Report called by myself to ER provider 01/12/2025 at 2:40 p.m. Radiologic Study #2: Attestation: I personally reviewed and interpreted this imaging study as follows: Imaging: Ultrasound Radiologist's impression: EXAM: US ABDOMEN LIMITED CLINICAL HISTORY: RUQ tender TECHNIQUE: Ultrasound abdomen performed using standard protocol. COMPARISON: US US ABDOMEN from 08/31/[address] CHEST/ABD/PEL W from 01/12/2025 FINDINGS: PANCREAS: Normal where visualized. LIVER: Normal. Hepatopetal flow in the Portal Vein. The liver measures in 19.3 cm length. There is a 1.1 cm simple cyst in the right lobe of the liver. This was present on the CT examination. No follow-up is recommended. GALLBLADDER: No evidence of cholelithiasis. No evidence of wall thickening. No pericholecystic fluid identified. There is a 0.6 cm echogenic nodule along the wall of the gallbladder which may represent a polyp. BILIARY SYSTEM: Common bile duct measures < 7 mm. No intrahepatic biliary ductal dilation. QUINONES'S SIGN: Negative. RIGHT KIDNEY: Kidney is normal in size. No evidence of renal calculi. No evidence of hydronephrosis. No renal mass or cyst identified. ASCITES: None seen. IMPRESSION: 1. No sonographic evidence to suggest acute cholecystitis. 2. No cholelithiasis. 3. 6 mm echogenic immobile nodule along the wall of the gallbladder likely reflecting a polyp. Lab Data Lab results reviewed: Yes I reviewed the patient's lab results. Labs: Laboratory Tests Range/Units 01/12/25 01/12/25 01/12/25 11:45 12:45 13:10 WBC (4.4-10.8) 10^3/uL 13.09 H RBC (3.93-5.22) 10^6/uL 4.39 Hgb (11.2-15.7) g/dL 13.1 Hct (36.0-46.0) % 40.7 MCV (80-95) fL 93 MCH (27.0-33.0) pg 29.8 MCHC (32.0-36.0) % 32.2 RDW (11.7-14.6) % 11.7 Plt Count (130-400) 10^3/uL 211 MPV (8.0-11.0) fL 10.5 Immature Gran % % 0.2 Neutrophils % % 84.9 Lymphocytes % % 9.5 Monocytes % % 5.0 Eosinophils % % 0.2 Basophils % % 0.2 Nucleated RBC % (0.0-0.3) % 0.0 Absolute Neutrophils (1.2-6.7) 10^3/uL 11.11 H Absolute Lymphocytes (1.2-3.4) 10^3/uL 1.24 Absolute Monocytes (0.1-0.8) 10^3/uL 0.65 Absolute Eosinophils (0.0-0.7) 10^3/uL 0.03 Absolute Basophils (0.0-0.2) 10^3/uL 0.03 D-Dimer (<500) ng/mlFEU 393 VBG Lactate (<or=2.0) mmol/L 1.0 Sodium (136-145) mmol/L 142 Potassium (3.5-5.1) mmol/L 3.9 Chloride (98-107) mmol/L 104 Carbon Dioxide (21.0-32.0) mmol/L 28.1 Anion Gap (3-11) mmol/L 9.9 BUN (7-18) mg/dL 13 Creatinine (0.55-1.02) mg/dL 0.6 Est GFR (CKD-EPI 2020) (mL/min/1.73m2) 96.50 Glucose (74-106) mg/dL 108 H Calcium (8.5-10.1) mg/dL 9.1 Magnesium (1.8-2.4) mg/dL 2.0 Total Bilirubin (0.2-1.0) mg/dL 1.2 H AST (15-37) U/L 20 ALT (14-59) U/L 23 Alkaline Phosphatase (46-116) U/L 77 Troponin I (<or=51) ng/L < 4 4 NT-Pro-B Natriuret Pep (<300) pg/mL 65 Total Protein (6.4-8.2) g/dL 7.5 Albumin (3.4-5.0) g/dL 4.1 Lipase (<78) U/L 24 Urine Color (Yellow) Yellow Urine Clarity (Clear) Clear Urine pH (5-8) 6.5 Ur Specific [place] (1.005-1.025) 1.015 Urine Protein (Neg-Trace) mg/dL Negative Urine Ketones (Negative) mg/dL 15 H Urine Blood (Negative) Negative Urine Nitrite (Negative) Negative Urine Bilirubin (Negative) Negative Urine Urobilinogen (Up to 0.2) mg/dL 0.2 Ur Leukocyte Esterase (Negative) Negative Urine Glucose (Negative) mg/dL Negative PFSH All Active Problems (Updated 01/12/25 @ 15:22 by RUSS Sun) Chest pain of uncertain etiology (Acute) Renal cyst (Acute) rt cortical cyst, per 2010 CT Hepatic lesion (Acute) probable hemangioma per 2010 CT Family history of melanoma (Chronic) Both bros and sis had melanoma, removed, alive/well. Fam hx-ischem heart disease (Acute 03/22/11) [place], thyroid, hyperlipidemia- father at age 65, smoker Human papilloma virus test positive (Acute 04/09/13) Normal/negative Pap, (+) HPV Medical History Fracture of fifth metatarsal bone of right foot (09/28/20) Surgical History section (04/24/87) X4 Colonoscopy - IV Sedation (11/26/14) Dr Koch H/O esophagogastroduodenoscopy (~09/05/22) H/O tooth extraction H/O wisdom tooth extraction History of endometrial biopsy Family History Father , [place] at age 65. Heart disease Sister Cancer BRAIN Brother Heart disease STENTS/VALVE REPLACEMENT Brother Skin cancer Mother , AGE 103 Thyroid disease Social History Smoking/Tobacco Use Status: Never Smoking risk assessment performed?: Yes Alcohol Intake: current Alcohol Intake frequency: a few times a week Drug use: Never Substance use type: does not use Adopted: No Foster care: No Household members: spouse Number of Children: 4 number of grandchildren: 6 current occupation: Director of [employer] Pets and animals: No Current gender identity: female What is your relationship status?: Panel score (0-1 are the most socially isolated patients): 1 Lida/Baptism: Baptism Special lida needs: No Seatbelt use: always Drive intox or ride w/intox route delivery driver: No Working smoke detector in home: Yes Fire extinguisher in home: Yes Carbon monox detector in home: Yes Do you feel safe at home: Yes (unable to assess privately) Do you feel safe in your relationship?: Yes
--- NOTE | 2025-01-12 14:30 | DI.US_ITS ---
Exam(s) US ABDOMEN LIMITED EXAM: US ABDOMEN LIMITED CLINICAL HISTORY: RUQ tender TECHNIQUE: Ultrasound abdomen performed using standard protocol. COMPARISON: US US ABDOMEN from 08/31/[address] CHEST/ABD/PEL W from 01/12/2025 FINDINGS: PANCREAS: Normal where visualized. LIVER: Normal. Hepatopetal flow in the Portal Vein. The liver measures in 19.3 cm length. There is a 1.1 cm simple cyst in the right lobe of the liver. This was present on the CT examination. No follow-up is recommended. GALLBLADDER: No evidence of cholelithiasis. No evidence of wall thickening. No pericholecystic fluid identified. There is a 0.6 cm echogenic nodule along the wall of the gallbladder which may represent a polyp. BILIARY SYSTEM: Common bile duct measures < 7 mm. No intrahepatic biliary ductal dilation. TALAVERA'S SIGN: Negative. RIGHT KIDNEY: Kidney is normal in size. No evidence of renal calculi. No evidence of hydronephrosis. No renal mass or cyst identified. ASCITES: None seen. IMPRESSION: 1. No sonographic evidence to suggest acute cholecystitis. 2. No cholelithiasis. 3. 6 mm echogenic immobile nodule along the wall of the gallbladder likely reflecting a polyp. DATA REPOSITORY:
== END 2025-01-12 15:35 | disposition home or self-care (01) ==
PROVIDERS: Emergency Provider Physician Assistant; PCP Family Medicine
DX: R07.9 Chest pain, unspecified (principal)
CPT/HCPCS: 99284; 99285; 36415; 74177; 80053; 83690; 93005; 71260; 76705; 81003; 83605; 83735; 83880; 84484; 85025; 85379; 93010; J3490